=== PATIENT | male | born 1995 | race Caucasian/White ===

== ENCOUNTER 2017-03-26 11:13 | Observation (INO) | payer OTHER ==
[2017-03-26] MEDS ORDERED: ONDANSETRON 4 MG/2 ML VIAL ONE (12:03)
[2017-03-26] MEDS ORDERED: ONDANSETRON 4 MG/2 ML VIAL IVP ONE (12:08)
[2017-03-26] MEDS ORDERED: NS 1,000 ML IV ONE ×3 (12:29→14:21)
[2017-03-26 12:36] LABS: % IMMATURE GRANULYOCYTES 0.5 % (0.0-1.1); ABSOLUTE IMMATURE GRANULOCYTES 0.09 10^3/uL (0.00-0.10); ADD DIFF? NO; ADD MORPH? NO; ADD SCAN? NO; ATYPICAL LYMPHOCYTE FLAG 0 (0-99); FRAGMENT RBC FLAG 0 (0-99); HEMOGLOBIN 18.6 g/dL (13.7-17.5); LEFT SHIFT FLG 0 (0-99); LIPEMIA HEMOLYSIS FLAG 90 (0-99); MEAN CELL HEMOGLOBIN 30.5 pg (27.9-34.1); MEAN CELL HEMOGLOBIN CONCENTR. 33.8 g/dL (32.4-36.7); MEAN CELL VOLUME 90.2 fL (81.5-99.8); MEAN PLATELET VOLUME 11.1 fL (8.7-11.7); PLATELET CLUMPS FLAG 0 (0-99); PLATELET COUNT 337 10^3/uL (150-400); RED CELL DISTRIBUTION WIDTH 13.8 % (11.5-15.2)
[2017-03-26 12:41] LABS: ANION GAP 37 mEq/L (8-16); CHLORIDE 97 mEq/L (97-110); CREATININE 1.1 mg/dL (0.7-1.3); GLOMERULAR FILTRATION RATE > 60; POTASSIUM 4.4 mEq/L (3.5-5.2); SODIUM 142 mEq/L (134-144)
--- NOTE | 2017-03-26 12:48 | EDPHY ---
H & P Time Seen by Provider: 03/26/17 12:30 HPI/ROS: CHIEF COMPLAINT: Seizure HISTORY OF PRESENT ILLNESS: The patient is a 21-year-old male who presents emergency department after having an episode of seizure-like activity. The patient states that he has no history of seizure. He has been stressed about his grades and is not been sleeping. He states he has not slept for the last 24 hr. He was in class taking notes. The next thing he noted he was on the floor any data center architect were standing over his head. Per report, the patient had seizure -like activity. Patient states that he has been taking Adderall prescribed to him. He has also been taking nicotine supplements. He drinks coffee early occasionally. He has no headache. No neck pain. No focal weakness or numbness. Patient has used LSD in the past but none recently. No other drug use. REVIEW OF SYSTEMS: My complete review of systems is negative except as mentioned in the HPI. Past Medical/Surgical History: Includes depression, anxiety Past surgical history: Negative Social history: The patient used LSD a couple of weeks ago. He uses nicotine supplementation. Smoking Status: Current every day smoker Physical Exam: 163/85, 126, 18, 93% on room air, 36.6 GENERAL: Well-appearing, in no acute distress, alert. HEENT: Eyes normal to inspection, normal pharynx, patient has a small bite at the tip of his tongue no signs of dehydration. NECK: No thyromegaly, no lymphadenopathy, supple. RESPIRATORY: Clear to auscultation bilaterally, no rales, rhonchi or wheezing. CVS: Regular rate and rhythm, no rubs, murmurs, or gallops. ABDOMEN: Soft, nontender, nondistended, no organomegaly. BACK: Normal to inspection, no CVA tenderness. : No incontinence SKIN: Normal color, no rash, warm, dry. No pallor. EXTREMITIES: No pedal edema, no calf tenderness, no Homans sign or cords, no joint swelling. NEURO/PSYCH: Higher functions: Alert and Oriented x3. Normal speech and cognition. Normal mood and affect. Cranial nerves: Normal as tested. Cerebellar: Normal as tested. Good finger to nose, good [id number], normal gait. Peripheral exam: Normal motor exam. Normal sensation. Normal reflexes. Constitutional: Initial Vital Signs Temperature (C) 36.6 C 03/26/17 11:15 Heart Rate 126 H 03/26/17 11:15 Respiratory Rate 18 03/26/17 11:15 Blood Pressure 163/85 H 03/26/17 11:15 O2 Sat (%) 93 03/26/17 11:15 O2 Delivery Mode Room Air Allergies/Adverse Reactions: No Known Allergies Allergy (Unverified 03/26/17 11:33) Home Medications: Medication Instructions Recorded Adderall 10 MG (*) 03/26/17 Remeron 03/26/17 Medical Decision Making - Diagnostics Imaging Results: Imaging Impressions Head CT 03/26/17 12:28 Impression: There is no acute intracranial abnormality identified on this unenhanced CT evaluation. If there is further clinical concern regarding the patient's symptoms, MR imaging is suggested, if not otherwise contraindicated. Findings were discussed with JEREL ESCALONA MD at 13:07, on 03/26/2017. ED Course/Re-evaluation: In the emergency department discussed possible etiologies with the patient. I answered all his questions. IV was placed. Laboratory studies, head CT were ordered 1300: I reviewed the patient's rhythm strip. He was tachycardic while here. He had multiple PVCs. Because of this an EKG was ordered. Troponin was added. Patient's chemistry panel was noted to be abnormal with a CO2. Sodium and potassium were normal. Renal function normal. Patient's troponin was negative. His white count was elevated 18,000. EKG showed sinus tachycardia 115. Normal axis and normal intervals. No ST or T- wave abnormalities. I reviewed the patient's rhythm strip. It. [facility] [place] [facility] 13 50: The patient is still tachycardic. He does not appear withdrawing. He denies alcohol use. U tox was added. Patient was given a 3rd L of normal saline. Repeat chemistry panel was ordered. U tox pending I discussed the case with Cardiology, Dr. Mcclendon. We reviewed the rhythm strip with danielamel as well as EKG. Based on the patient's presentation and rhythm strip findings she recommended the patient be observed. I agree with this plan. I discussed the case with the hospitalist service. Dr. Marcelino will admit. Dr. Mcclendon evaluated the patient in the emergency department. She reported to me that the patient stated he used cocaine 2 days ago. This could be contributing to his symptoms. Differential Diagnosis: My differential includes but is not limited to seizure, epilepsy, subarachnoid hemorrhage, subdural hematoma, mass, malignancy, electrolyte abnormality, sugar abnormality, dehydration - Data Points Laboratory Results: Laboratory Results 03/26/17 11:25 03/26/17 11:25 03/26/17 03/26/17 03/26/17 13:40 12:50 11:25 WBC RBC Hgb Hct MCV MCH MCHC RDW Plt Count MPV Neut % (Auto) Lymph % (Auto) Bowman % (Auto) Eos % (Auto) Baso % (Auto) Nucleat RBC Rel Count Absolute Neuts (auto) Absolute Lymphs (auto) Absolute Monos (auto) Absolute Eos (auto) Absolute Basos (auto) Absolute Nucleated RBC Immature Gran % Immature Gran # Sodium 142 mEq/L mEq/L (134-144) Potassium 4.4 mEq/L mEq/L (3.5-5.2) Chloride 97 mEq/L mEq/L (97-110) Carbon Dioxide 8 mEq/l L* mEq/l (22-31) Anion Gap 37 mEq/L H mEq/L (8-16) BUN 8 mg/dL mg/dL (7-23) Creatinine 1.1 mg/dL mg/dL (0.7-1.3) Estimated GFR > 60 Glucose 143 mg/dL H mg/dL (70-100) Calcium 10.7 mg/dL H mg/dL (8.5-10.4) Phosphorus 7.0 mg/dL H mg/dL (2.5-4.5) Troponin I < 0.012 ng/mL ng/mL (0.000-0.034) Urine Opiates Screen Pending Urine Barbiturates Pending Ur Phencyclidine Scrn Pending Ur Amphetamine Screen Pending U Benzodiazepines Scrn Pending Urine Cocaine Screen Pending U Marijuana (THC) Screen Pending 03/26/17 11:25 WBC 18.63 10^3/uL H 10^3/uL (3.80-9.50) RBC 6.10 10^6/uL 10^6/uL (4.40-6.38) Hgb 18.6 g/dL H g/dL (13.7-17.5) Hct 55.0 % H % (40.0-51.0) MCV 90.2 fL fL (81.5-99.8) MCH 30.5 pg pg (27.9-34.1) MCHC 33.8 g/dL g/dL (32.4-36.7) RDW 13.8 % % (11.5-15.2) Plt Count 337 10^3/uL 10^3/uL (150-400) MPV 11.1 fL fL (8.7-11.7) Neut % (Auto) 68.1 % % (39.3-74.2) Lymph % (Auto) 24.2 % % (15.0-45.0) Bowman % (Auto) 6.4 % % (4.5-13.0) Eos % (Auto) 0.4 % L % (0.6-7.6) Baso % (Auto) 0.4 % % (0.3-1.7) Nucleat RBC Rel Count 0.0 % % (0.0-0.2) Absolute Neuts (auto) 12.68 10^3/uL H 10^3/uL (1.70-6.50) Absolute Lymphs (auto) 4.51 10^3/uL H 10^3/uL (1.00-3.00) Absolute Monos (auto) 1.20 10^3/uL H 10^3/uL (0.30-0.80) Absolute Eos (auto) 0.07 10^3/uL 10^3/uL (0.03-0.40) Absolute Basos (auto) 0.08 10^3/uL 10^3/uL (0.02-0.10) Absolute Nucleated RBC 0.00 10^3/uL 10^3/uL (0-0.01) Immature Gran % 0.5 % % (0.0-1.1) Immature Gran # 0.09 10^3/uL 10^3/uL (0.00-0.10) Sodium Potassium Chloride Carbon Dioxide Anion Gap BUN Creatinine Estimated GFR Glucose Calcium Phosphorus Troponin I Urine Opiates Screen Urine Barbiturates Ur Phencyclidine Scrn Ur Amphetamine Screen U Benzodiazepines Scrn Urine Cocaine Screen U Marijuana (THC) Screen Medications Given: Discontinued Medications Sodium Chloride (Ns) 1,000 mls @ 3,000 mls/hr IV ONCE ONE Stop: 03/26/17 12:48 Last Admin: 03/26/17 12:00 Dose: 1,000 mls Sodium Chloride (Ns) 1,000 mls @ 3,000 mls/hr IV ONCE ONE Stop: 03/26/17 13:32 Last Admin: 03/26/17 13:14 Dose: 1,000 mls Sodium Chloride (Ns) 1,000 mls @ 3,000 mls/hr IV ONCE ONE Stop: 03/26/17 14:40 Last Admin: 03/26/17 14:00 Dose: 1,000 mls Lorazepam (Ativan Injection) 0.5 mg IVP EDNOW ONE Stop: 03/26/17 14:21 Last Admin: 03/26/17 14:37 Dose: 0.5 mg Ondansetron HCl (Zofran) 4 mg IVP EDNOW ONE Stop: 03/26/17 12:09 Last Admin: 03/26/17 12:09 Dose: 4 mg Departure - Departure Disposition: [facility] Clinical Impression: Seizure Cardiac dysrhythmia Qualifiers: Arrhythmia type: unspecified cardiac arrhythmia Qualified Code(s): I49.9 - Cardiac arrhythmia, unspecified Condition: Good
[2017-03-26 12:54] LABS: CALCIUM 10.7 mg/dL (8.5-10.4); GLUCOSE 143 mg/dL (70-100)
[2017-03-26 13:02] LABS: CARBON DIOXIDE 8 mEq/l (22-31)
--- NOTE | 2017-03-26 13:08 | CPEKG ---
Heart Rate: 115 RR Interval: 522 P-R Interval: 148 QRSD Interval: 92 QT Interval: 312 QTC Interval: 432 P Reed: 84 QRS Reed: 88 T Wave Reed: 68 EKG Severity - OTHERWISE NORMAL ECG - EKG Impression: SINUS TACHYCARDIA Electronically Signed By: Corrie Arboleda 26-Mar-2017 15:14:11
[2017-03-26] MEDS ORDERED: LORazepam 2 MG/ML INJ IVP ONE (14:20)
[2017-03-26 14:59] LABS: ANION GAP 11 mEq/L (8-16); CALCIUM 8.1 mg/dL (8.5-10.4); CARBON DIOXIDE 20 mEq/l (22-31); CHLORIDE 109 mEq/L (97-110); CREATININE 0.8 mg/dL (0.7-1.3); GLOMERULAR FILTRATION RATE > 60; GLUCOSE 79 mg/dL (70-100); POTASSIUM 4.3 mEq/L (3.5-5.2); SODIUM 140 mEq/L (134-144)
--- NOTE | 2017-03-26 15:04 | PDGENHP ---
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 He used cocaine 2 nights ago and has been taking extra adderall because he isn't sleeping well, trying to stay focused during class. He also frequently vapes with a nicotine supplement. He was in class today taking notes and then everything went black and the next thing he remembers is seeing the EMS providers. Witnesses reported tonic clonic seizure activity. He felt lightheaded and dizzy when he woke up and felt overwhelmed. No CP, some SOB. No fevers/chills. In the ED, his HR is in the 120's and he is hypertensive. He developed bigeminy on his rhythm strip. Cardiology was consulted, saw the pt in the ED, and he is admitted for further evaluation. History Information - Allergies/Home Medication List Allergies/Adverse Reactions: No Known Allergies Allergy (Unverified 03/26/17 11:33) Home Medications: Dextroamphetamine/Amphetamine [Adderall 5 mg Tablet] 5 mg PO DAILY 03/26/17 [ Last Taken 03/26/17 09:00] Gabapentin [Neurontin 300 MG (*)] 600 mg PO HS 03/26/17 [Last Taken 03/26/17] Herbals/Supplements -Info Only 1 ea PO DAILY 03/26/17 [Last Taken 03/26/17] Mirtazapine [Remeron] 30 mg PO HS 03/26/17 [Last Taken 03/25/17] I have personally reviewed and updated: family history, medical history, social history, surgical history - Past Medical History Additional medical history: ADHD, Anxiety - Surgical History Reports: no pertinent surgical hx - Family History Positive for: non-pertinent - Social History Smoking Status: Current every day smoker Alcohol Use: Occasionally Drug Use: Cocaine, Other (adderall misuse) Additional social history: College student, studying psychology and political science Review of Systems Review of Systems: ROS: 10pt was reviewed & negative except for what was stated in HPI & below Physical Exam Physical Exam: Temp Pulse Resp BP Pulse Ox 36.6 C 114 H 24 H 152/86 H 96 03/26/17 11:15 03/26/17 14:03 03/26/17 14:03 03/26/17 14:03 03/26/17 14:03 Constitutional: no apparent distress Eyes: other (pupils dilated, errl) Ears, Nose, Mouth, Throat: moist mucous membranes Cardiovascular: no murmur, rub, or gallop, tachycardia Respiratory: no respiratory distress, clear to auscultation Gastrointestinal: normoactive bowel sounds, soft, non-tender abdomen Skin: warm Musculoskeletal: full muscle strength Neurologic: AAOx3 Psychiatric: interacting appropriately Lab Data & Imaging Review 03/26/17 11:25 03/26/17 14:35 WBC 18.63 10^3/uL (3.80-9.50) H 03/26/17 11:25 RBC 6.10 10^6/uL (4.40-6.38) 03/26/17 11:25 Hgb 18.6 g/dL (13.7-17.5) H 03/26/17 11:25 Hct 55.0 % (40.0-51.0) H 03/26/17 11:25 MCV 90.2 fL (81.5-99.8) 03/26/17 11:25 MCH 30.5 pg (27.9-34.1) 03/26/17 11:25 MCHC 33.8 g/dL (32.4-36.7) 03/26/17 11:25 RDW 13.8 % (11.5-15.2) 03/26/17 11:25 Plt Count 337 10^3/uL (150-400) 03/26/17 11:25 MPV 11.1 fL (8.7-11.7) 03/26/17 11:25 Neut % (Auto) 68.1 % (39.3-74.2) 03/26/17 11:25 Lymph % (Auto) 24.2 % (15.0-45.0) 03/26/17 11:25 Sharkey % (Auto) 6.4 % (4.5-13.0) 03/26/17 11:25 Eos % (Auto) 0.4 % (0.6-7.6) L 03/26/17 11:25 Baso % (Auto) 0.4 % (0.3-1.7) 03/26/17 11:25 Nucleat RBC Rel Count 0.0 % (0.0-0.2) 03/26/17 11:25 Absolute Neuts (auto) 12.68 10^3/uL (1.70-6.50) H 03/26/17 11:25 Absolute Lymphs (auto) 4.51 10^3/uL (1.00-3.00) H 03/26/17 11:25 Absolute Monos (auto) 1.20 10^3/uL (0.30-0.80) H 03/26/17 11:25 Absolute Eos (auto) 0.07 10^3/uL (0.03-0.40) 03/26/17 11:25 Absolute Basos (auto) 0.08 10^3/uL (0.02-0.10) 03/26/17 11:25 Absolute Nucleated RBC 0.00 10^3/uL (0-0.01) 03/26/17 11:25 Immature Gran % 0.5 % (0.0-1.1) 03/26/17 11:25 Immature Gran # 0.09 10^3/uL (0.00-0.10) 03/26/17 11:25 Sodium 142 mEq/L (134-144) 03/26/17 11:25 Potassium 4.4 mEq/L (3.5-5.2) 03/26/17 11:25 Chloride 97 mEq/L (97-110) 03/26/17 11:25 Carbon Dioxide 8 mEq/l (22-31) L* 03/26/17 11:25 Anion Gap 37 mEq/L (8-16) H 03/26/17 11:25 BUN 8 mg/dL (7-23) 03/26/17 11:25 Creatinine 1.1 mg/dL (0.7-1.3) 03/26/17 11:25 Estimated GFR > 60 03/26/17 11:25 Glucose 143 mg/dL (70-100) H 03/26/17 11:25 Calcium 10.7 mg/dL (8.5-10.4) H 03/26/17 11:25 Phosphorus 7.0 mg/dL (2.5-4.5) H 03/26/17 11:25 Troponin I < 0.012 ng/mL (0.000-0.034) 03/26/17 12:50 Urine Opiates Screen NEGATIVE (NEGATIVE) 03/26/17 13:40 Urine Barbiturates NEGATIVE (NEGATIVE) 03/26/17 13:40 Ur Phencyclidine Scrn NEGATIVE (NEGATIVE) 03/26/17 13:40 Ur Amphetamine Screen NON-NEGATIVE (NEGATIVE) H 03/26/17 13:40 U Benzodiazepines Scrn NEGATIVE (NEGATIVE) 03/26/17 13:40 Urine Cocaine Screen NON-NEGATIVE (NEGATIVE) H 03/26/17 13:40 U Marijuana (THC) Screen NEGATIVE (NEGATIVE) 03/26/17 13:40 Visualized and Interpreted EKG results: Yes EKG additional interpertation: sinus tachycardia Assessment & Plan Assessment: Seizure - new onset, suspect provoked by poly-susbtance abuse with recent cocaine, overuse of Adderall and nicotine supplement by vaporization pen. CT head negative. Discussed case with Dr. Gee who does not recommend treating with anti-epileptic at this time, he will consult in am. -admit to telemetry -seizure precautions, neurochecks -MRI in am -encouraged treatment for substance use disorder -Neurology consult Ventricular bigeminy - again, suspect substance induced. Discussed with Dr. Mcclendon, cardiology, who consulted in ED. Trop neg. -monitor on tele -avoid beta blockers in setting of cocaine use -trend trop -echo pending Polysubstance abuse - cocaine and amphetamine on UDS. Discussed with pt cardiac and neurologic risks. Encouraged treatment. -outpt tx -encouraged cessation Full code DVT PPLX - low risk Dispo - PCU, obs
[2017-03-26] MEDS ORDERED: LORazepam 2 MG/ML INJ IVP PRN (15:13)
[2017-03-26] MEDS ORDERED: ONDANSETRON DISINTEGRATING 4 MG TAB PO PRN (15:14)
[2017-03-26] MEDS ORDERED: ONDANSETRON 4 MG/2 ML VIAL IVP PRN (15:14)
[2017-03-26] MEDS ORDERED: ACETAMINOPHEN 325 MG TAB PO PRN (15:14)
[2017-03-26] MEDS ORDERED: NS 1,000 ML IV SCH (15:15)
--- NOTE | 2017-03-26 16:27 | ECHO ---
[email or web address] [address] [address] Main: [phone] Fax: Transthoracic Echocardiogram Name: HERMAN ROSE MR#: [id number] Study Date: 03/26/2017 Study Time: 03:40 PM Date of : 1995 Age: 21 year(s) Height: 180.3 cm (71 in.) Weight: 63.5 kg (140 lb.) BSA: 1.81 m2 Gender: Male Examination: Echo Indication: Syncope/PVCs Image Quality: Contrast: Requested by: Jazmine Mcclendon BP: 131 mmHg/78 mmHg Heart Rate: Rhythm: Indication: Syncope/PVCs Procedure Staff Computer Operations Manager: Edna Frederick Physician: Jermaine Gomez Requesting Provider: Measurements: Chambers Valvular Assessment AV/MV Valvular Assessment TV/PV Normal Normal Normal Name Value Range Name Value Range Name Value Range Ao Jodi (MM): 3.1 cm (2.2 cm-3.7 AV Vmax: 0.07 m/s (1 m/s-1.7 PV Vmax: 1.28 m/s (0.6 m/s-0.9 cm) m/s) m/s) IVSd (2D): 0.6 cm (0.6 cm-1.1 AV maxP mmHg ( - ) PV PGmax: 7 mmHg ( - ) cm) AV meanP mmHg ( - ) LVDd (2D): 4.3 cm (4.2 cm-5.9 MV E Vmax: 0.88 m/s ( - ) cm) MV A Vmax: 0.78 m/s ( - ) LVDs (2D): 2.4 cm (2.1 cm-4 MV E/A: 1.13 ( - ) cm) LVPWd (2D): 0.8 cm (0.6 cm-1 cm) LVEF (MOD4): 75 % (>=55 %) Continued Measurements: Chambers Valvular Assessment AV/MV Name Value Name Value LADs Lon.4 cm MV E' Septal: 0.14 m/s LA Area: 9.6 cm2 MV E/E' Septal: 6.10 MV E/E' Lateral: 4.50 Findings: Left Ventricle: Normal size left ventricle. Global hypercontractility of the left ventricle. EF is 75 %. No regional wall motion abnormality. Right Ventricle: Patient: HERMAN ROSE Study Date: 03/26/2017 Page 1 of 2 03:40 PM Normal size right ventricle. Left Atrium: The left atrium is normal in size. Right Atrium: The right atrium is normal in size. Mitral Valve: The mitral valve is normal in appearance and function. Trivial mitral valve regurgitation. Aortic Valve: The aortic valve is normal in appearance and function. Tricuspid Valve: The tricuspid valve is normal in appearance and function. Trivial tricuspid valve regurgitation. Pulmonic Valve: The pulmonic valve is normal in appearance and function. Aorta: The aorta is normal. Pericardium: No pericardial effusion. (No Signature Object) Patient: HERMAN ROSE Study Date: 03/26/2017 Page 2 of 2 03:40 PM [id number]
--- NOTE | 2017-03-26 16:47 | ASMTCMCOM ---
CM Note CM Note Notes: 03/26/2017 Case Management Note Met w/pt. Pt parents are Christine and Shoaib Rae. Dad's cell [phone]. Pt did not alea permission for case management to reach out to parents. Pt plans to call them later anne. Pt family lives in [facility]. Pt sees a counselor Naren at the [facility] program at [facility] every 2 weeks. He feels this is not enough support and would like to see if his parent's insurance offers any counseling here in [place]. Discussed case management will need to contact parents for that information. Pt declined contact by case management today to parents and asked to discuss again tomorrow. Pt requested counseling here at [facility]; offered Social work consult, spiritual consult or [facility]. Case Management to arrange social work consult tomorrow. Pt psychiatrist is Neha Cabral in [facility]. [phone]. Pt did alea permission for medical staff to contact Neha Cabral and offered to sign a release of information. Pt reports his daily Adderall dose is 5 mg BID but usually only uses it once a day. He is prescribed a medication to sleep but couldn't recall the name. Pt lives in the [facility] alone and has tentative plans for a political science degree or psychology. 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 He admits to using marijuana his freshman year but found it made him anxious. He reports a good break at home over but felt his grades need improvement upon returning to [place]. He stayed up for 3 nights with friends in the library using adderall, cocaine, coffee and vaping to stay awake. Reports this is his third time using cocaine and hopes to stop. Case Management d/c poc: To be determined. Pt is requesting resources for more support. Will need to explore options further tomorrow. Date Signed: 03/26/2017 04:46 PM Electronically Signed By:Erin Dent RN
--- NOTE | 2017-03-26 20:01 | GCON ---
[f rep st] CONSULTATION CARDIOLOGY CONSULT. DATE OF CONSULTATION: 03/26/2017 CHIEF COMPLAINT: Seizure and PVCs. HISTORY OF PRESENT ILLNESS: We were asked by Dr. Arboleda to visit with the patient. 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 He has been very stressed at school, and tells us that he stayed up for 2 nights in a row. He has been taking 10 mg of Adderall daily which is twice the amount that he normally takes. He also did cocaine 2 days ago, has been using nicotine replacement as he is try ing to quit cigarettes, and did drink a significant amount of alcohol approximately 5 days ago. He a dmits that he has been eating poorly and not staying well hydrated. He was in class today and felt that his heart was racing. The next thing he knew he was on the floor surrounded by EMS and was brought to the hospital. He does not recall preceding chest pain or dyspn ea. He has never had a syncopal episode or history of seizure disorder. Apparently, bystanders repo rted that he did have seizure-like activity and bit his tongue. In the emergency department, he received IV fluids. His EKG shows sinus tachycardia with no pre-exci tation, Brugada pattern, or long QT interval. He did have periods of ventricular bigeminy. Upon my evaluation, he is in sinus tachycardia. He reports that he is feeling better after IV fluids. REVIEW OF SYSTEMS: As above. He has a long history of anxiety and depression, and he is quite stres sed with school right now. Otherwise, a full 10-point review of systems is negative. MEDICATIONS: Outpatient: Remeron, Adderall 5-10 mg daily, and a sleep aid which he cannot recall th e name of. SOCIAL HISTORY: The patient is a college student. He smokes cigarettes, is using nicotine replaceme nt to try to quit, has recently used cocaine, has used LSD in the past couple of weeks, and sometimes drinks alcohol. He denies any recent marijuana use. FAMILY HISTORY: Negative for premature coronary disease or unexplained early . PHYSICAL EXAMINATION: VITAL SIGNS: Blood pressure is initially 163/85. Heart rate 114. Oxygen sat uration 96% on room air. He is afebrile. GENERAL: This is a well-developed, well-nourished, and ve ry anxious, somewhat agitated young male. He is cooperative. HEENT: Pupils are dilated, but react equally to light. Normocephalic, atraumatic. Sclerae clear and free of jaundice. Mucous membranes moist. CARDIOVASCULAR: JVP is less than 10. Carotids equal and 2+ without bruit. CARDIOVASCULAR: Regular, tachycardic rhythm without murmur, rub, or gallop. LUNGS: Clear to auscultation without w heeze, rhonchi, or rales. ABDOMEN: Soft, nontender, nondistended without bruits, masses, hepatosple nomegaly. EXTREMITIES: Warm and perfused without cyanosis, clubbing, or edema. NEURO: He is alert and oriented x3. He is anxious and somewhat tremulous, but otherwise appropriate. LABORATORY DATA: White count 18.6, hematocrit 55, and platelets are 337. Sodium 142, potassium 4.4, chloride 97, bicarb 8, anion gap is 37, BUN 8, creatinine 1.1, glucose is 143, calcium 10.7, phospho carolyn 7. Troponin is negative. U-tox is pending. EKG reviewed by me: Sinus tachycardia with no ischemic changes, no pre-excitation, no evidence of Br ugada pattern. Normal QT interval. Head CT: No acute intracranial abnormality. ASSESSMENT AND PLAN: 21-year-old male with anxiety and polysubstance abuse, presents with seizure-li ke activity, and has had some ventricular bigeminy on telemetry. He is being admitted for further ob servation. It is likely that the use of multiple stimulants triggered a seizure. However, there is concern for arrhythmic etiology and convulsive syncope given the premature ventricular contractions s een on telemetry. 1. Seizure: He is being admitted by Internal Medicine. He will be monitored. Consider neurology c onsult. Head CT is normal. 2. Premature ventricular contractions: Concern for arrhythmic etiology of his syncopal/seizure epis ode. We will monitor on telemetry. Echocardiogram has been ordered. Would avoid beta blockers as h e recently used cocaine 48 hours ago. Check toxicology screen. 3. Elevated white count: This is likely due to his seizure. This can be followed. He is currently afebrile and does not appear infected. 4. Acidosis: Likely related to lactic acidosis from his seizure. Follow BMP. Thank you for allowing us to participate in patient's care. We will follow with you. /[id number]/MODL
[2017-03-26] MEDS ORDERED: GABAPENTIN 300 MG CAP PO SCH (21:00)
[2017-03-26] MEDS: NICOTINE 7 MG/24 HR PATCH TD SCH (22:32)
[2017-03-27 07:02] LABS: % IMMATURE GRANULYOCYTES 0.3 % (0.0-1.1); ABSOLUTE IMMATURE GRANULOCYTES 0.03 10^3/uL (0.00-0.10); ADD DIFF? NO; ADD MORPH? NO; ADD SCAN? NO; ATYPICAL LYMPHOCYTE FLAG 0 (0-99); FRAGMENT RBC FLAG 0 (0-99); HEMATOCRIT 41.1 % (40.0-51.0); HEMOGLOBIN 14.5 g/dL (13.7-17.5); LEFT SHIFT FLG 0 (0-99); LIPEMIA HEMOLYSIS FLAG 90 (0-99); MEAN CELL HEMOGLOBIN 30.6 pg (27.9-34.1); MEAN CELL HEMOGLOBIN CONCENTR. 35.3 g/dL (32.4-36.7); MEAN CELL VOLUME 86.7 fL (81.5-99.8); MEAN PLATELET VOLUME 10.8 fL (8.7-11.7); PLATELET CLUMPS FLAG 0 (0-99); PLATELET COUNT 175 10^3/uL (150-400); RED BLOOD CELL COUNT 4.74 10^6/uL (4.40-6.38); RED CELL DISTRIBUTION WIDTH 13.8 % (11.5-15.2)
[2017-03-27 07:40] LABS: ANION GAP 13 mEq/L (8-16); CALCIUM 8.9 mg/dL (8.5-10.4); CARBON DIOXIDE 18 mEq/l (22-31); CHLORIDE 108 mEq/L (97-110); CREATININE 0.8 mg/dL (0.7-1.3); GLOMERULAR FILTRATION RATE > 60; GLUCOSE 76 mg/dL (70-100); POTASSIUM 4.7 mEq/L (3.5-5.2); SODIUM 139 mEq/L (134-144); SPECIMEN HEMOLYSIS 116
[2017-03-27] MEDS: NICOTINE 7 MG/24 HR PATCH TD SCH (10:18)
--- NOTE | 2017-03-27 10:22 | HOSPPROG ---
Hospitalist Progress Note Assessment/Plan: 21 yo M w seizure in setting of stimulant drug use, cocaine and sleep deprivation home today see dc summary Subjective: no further seizures. seen by neuro Objective: Vital Signs Temp Pulse Resp BP Pulse Ox 36.7 C 82 15 123/70 H 92 03/27/17 04:00 03/27/17 04:00 03/27/17 04:00 03/27/17 04:00 03/27/17 04:00 Laboratory Results 03/27/17 06:30 03/27/17 06:30 03/26/17 03/27/17 03/28/17 05:59 05:59 05:59 Intake Total 7750 Balance 7750 - Physical Exam Constitutional: no apparent distress, appears nourished Eyes: PERRL, anicteric sclera Ears, Nose, Mouth, Throat: moist mucous membranes, hearing normal Cardiovascular: regular rate and rhythym, no murmur, rub, or gallop Respiratory: no respiratory distress, no rales or rhonchi Gastrointestinal: normoactive bowel sounds, soft, non-tender abdomen Genitourinary: no bladder fullness, No sarmiento in urethra Skin: warm, normal color Musculoskeletal: full muscle strength, no muscle tenderness Neurologic: AAOx3, sensation intact bilaterally Psychiatric: interacting appropriately, not anxious Lymph, Heme, Immunologic: no cervical LAD ICD10 Worksheet Patient Problems: Problems Problem Status Onset Cardiac dysrhythmia Acute Seizure Acute
--- NOTE | 2017-03-27 10:59 | ASMTCMCOM ---
CM Note CM Note Notes: CM met w/ pt for dispo planning. CM provided some short term cognitive behavioral therapy. CM provided pt w/ several options for therapy found on psychology today. CM provided pt w/ a note for school. CM available for changes. Plan: Independent Date Signed: 03/27/2017 10:59 AM Electronically Signed By:DAMON Chen
[2017-03-27 11:29] VITALS: BP 129/71; PULSE 90; RESP 16; TEMP 97.9; O2SAT 64
--- NOTE | 2017-03-27 12:10 | GDS ---
[f rep st] DISCHARGE SUMMARY DISCHARGE DIAGNOSES: 1. Seizure. 2. Bigeminy. CONSULTS: Neurology. Please see admission history and physical by Dr. Maggy Rainey. HOSPITAL COURSE: The patient presented with a seizure that happened in class after 2 sleepless night s, during which time he doubled his home Adderall dose and used cocaine. He had a negative noncontra st CT. Declined MRI. He was seen by Neurology, felt no antiepileptic drugs were warranted. The pat ient was in bigeminy upon presentation. He had an EKG showing sinus tach. He had a normal echocardi ogram. He was discharged home. There were no events on telemetry. He was advised that cocaine is a dangerous drug. /[id number]/MODL
--- NOTE | 2017-03-27 14:05 | GCON ---
[f rep st] CONSULTATION NEUROLOGIC CONSULTATION REFERRING PHYSICIAN: Maggy Rainey MD The patient is a 21-year-old gentleman, whom I am asked to see in neurologic consultation for a gener alized seizure. The patient has no prior history of seizure. History is obtained from reviewing the medical records, as well as direct discussion with the patient and his nurse, and I also spoke to anuja montes mother after my evaluation of the patient. He came to the emergency room yesterday at around 12:30 , when he had had an event in class. He said he had not been sleeping for about 24 hours, and over t he previous several days had been taking extra Adderall to stay awake, cramming for tests. He also a cknowledges that a few days earlier he had taken cocaine, which is extremely rare for him to do. The description we have from EMS was witnesses recognized him to lose consciousness and awareness, an d had seizure-like activity consistent with a generalized convulsion. He was brought to the emergenc y department and found to be alert and oriented, and did not remember the details of the event, but d oes remember the rescue squad being there and over him, and simply feeling confused as to what was goldman ppening. Metabolic acidosis was seen on his initial lab, which has cleared. He underwent a head CT that was unremarkable. He had tachycardia and some bigeminy, and Cardiology was involved to assess h is function and did not find any obvious cardiac disorder. He has subsequently been admitted to the floor. I spoke to Dr. Rainey and initially planned on MRI, but have subsequently had more detailed discussion with the patient, and will defer on that for now. In any case, the patient had normal and development, and has dealt with some attention defici t problems and is on stimulant medicine. He also has a history of some anxiety and depression for wh ich he has had a psychiatrist. He has someone he sees in [place]. He also apparently has had some cou nseling in the area. During hospitalization, he has also undergone an echocardiogram. That study shows no abnormalities. PAST MEDICAL HISTORY: Unremarkable for any chronic neurologic conditions. The other medical problem s are as outlined above. MEDICATIONS: At admission were gabapentin 300 mg taking usually 600 at night, herbal supplements at times, Remeron 30 mg at night, and Adderall 5 mg. He says he usually takes 1 or 1-1/2 per day, but h ad been taking more lately. He had also reported vaping some nicotine supplement. FAMILY HISTORY: Noncontributory. SOCIAL HISTORY: He does smoke some cigarettes daily. Only occasional alcohol use. PHYSICAL EXAM: VITAL SIGNS: Blood pressure is 123/70, pulse of 82, respirations 15, temperature 36. 7. GENERAL: He is well developed, in no acute distress. EYES: Clear. NECK: Supple. No bruits o r masses. CARDIAC: Regular rate and rhythm. No murmur. NEUROLOGIC: He is alert and attentive and a little bit anxious, with mildly pressured speech. Pupils are dilated at about 5 mm, but reactive. Extraocular movements are intact. Normal facial sensation and movement. Hearing is preserved. Mo tor exam normal muscle bulk and tone with 5/5 strength. Reflexes 1 to 2+ and symmetric. Normal gait . No sensory loss. I have reviewed all of his diagnostic studies and they are as outlined above. IMPRESSION: Today's total unit time of 55 minutes, including review of information with the patient and a phone conversation with his mother. He had a seizure probably precipitated by sleep deprivatio n and excessive stimulant use. We had a good review of all of this and the fact that it is high risk to repeat his behavior, and he agrees to not do this in the future. He is extremely unlikely to hav e further seizures if he does not do this again. His head CT was negative. I spoke to his mother ab out the MRI, and feel that it is perfectly reasonable to hold off on MRI for now. In fact, I would a gree with that if this were my family member. We talked about risk factors moving forward, and watch ing for any episodes of unexplained altered awareness or anything that might suggest partial seizure phenomena. I informed him about hydration and better approaches to studying. He will have the optio n of pursuing any other therapies he might like to avoid any stress he can, and if he needs any help resources will be provided for any drug counseling. PLAN: He will follow up with me as needed. I gave him my card, and he has asked that I not discuss anything outside of the basic information we have provided to his mother. Specifically, he has not g iven me permission to give results of drug screen, so when she asked, I told her she would have to discuss this with him. /[id number]/MODL
--- NOTE | 2017-03-27 15:32 | ASDISCHSUM ---
Discharge Information Plan Status:Home with No Needs Medically Cleared to Leave:03/26/2017 Discharge Date:03/27/2017 11:50 AM CM D/C Disposition: ADT D/C Disposition:Home, Routine, Self-Care Projected Discharge Date:03/27/2017 12:00 AM Transportation at D/C: Discharge Delay Reason: Follow-Up Date:03/27/2017 12:00 AM Discharge Slot: Final Diagnosis: Placement Information Patient Contact Information Contact Name:NANCY Relationship: Address: Home Phone: Work Phone: City: Alternate Phone: State/[place] Code: Email: Financial Information Financial Class:HMO and PPO Plans Primary Plan Desc:[employer] Primary Plan Number:[id number] Secondary Plan Desc: Secondary Plan Number: Assessment Information [facility] CM Progress Note CM Note CM Note Notes: 03/26/2017 Case Management Note Met w/pt. Pt parents are Brad Rae. Dad's cell [phone]. Pt did not alea permission for case management to reach out to parents. Pt plans to call them later [facility]. Pt family lives in [place]. Pt sees a counselor Naren at the [facility] program at [facility] every 2 weeks. He feels this is not enough support and would like to see if his parent's insurance offers any counseling here in [place]. Discussed case management will need to contact parents for that information. Pt declined contact by case management today to parents and asked to discuss again tomorrow. Pt requested counseling here at [facility]; offered Social work consult, spiritual consult or [facility]. Case Management to arrange social work consult tomorrow. Pt psychiatrist is Neha Cabral in [facility]. [phone]. Pt did alea permission for medical staff to contact Neha Cabral and offered to sign a release of information. Pt reports his daily Adderall dose is 5 mg BID but usually only uses it once a day. He is prescribed a medication to sleep but couldn't recall the name. Pt lives in the [place] alone and has tentative plans for a political science degree or psychology. 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 He admits to using marijuana his freshman year but found it made him anxious. He reports a good break at home over but felt his grades need improvement upon returning to [place]. He stayed up for 3 nights with friends in the library using adderall, cocaine, coffee and vaping to stay awake. Reports this is his third time using cocaine and hopes to stop. Case Management d/c poc: To be determined. Pt is requesting resources for more support. Will need to explore options further tomorrow. Date Signed: 03/26/2017 04:46 PM Electronically Signed By:Erin Dent RN [facility] Progress Note CM Note CM Note Notes: CM met w/ pt for dispo planning. CM provided some short term cognitive behavioral therapy. CM provided pt w/ several options for therapy found on psychology today. CM provided pt w/ a note for school. CM available for changes. Plan: Independent Date Signed: 03/27/2017 10:59 AM Electronically Signed By:DAMON Chen Intervention Information
== END 2017-03-27 11:50 | disposition home or self-care (01) ==
LOC: F2W 15:22
PROVIDERS: ADMIT Internal Medicine; ATTEND Internal Medicine
DX: R56.9 Unspecified convulsions (principal); I49.3 Ventricular premature depolarization; F19.982 Other psychoactive substance use, unspecified with psychoactive substance-induced sleep disorder; D72.829 Elevated white blood cell count, unspecified; F41.8 Other specified anxiety disorders; F17.210 Nicotine dependence, cigarettes, uncomplicated; F15.90 Other stimulant use, unspecified, uncomplicated; Z72.820 Sleep deprivation
CPT/HCPCS: 70450; 93005; 93306; G0378; 80305; 96374; J2060; J2405

== ENCOUNTER 2017-04-07 12:13 | Emergency (ER) | payer OTHER ==
[2017-04-07] MEDS ORDERED: NS 1,000 ML IV ONE (12:25)
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
[2017-04-07 12:43] VITALS: TEMP 98.2; O2SAT 95
[2017-04-07] MEDS ORDERED: LORazepam 2 MG/ML INJ IVP ONE (12:54)
[2017-04-07] MEDS ORDERED: LORazepam 2 MG/ML INJ ONE (12:55)
[2017-04-07 13:05] VITALS: BP 142/91; PULSE 99; RESP 18
== END 2017-04-07 13:25 | disposition home or self-care (01) ==
LOC: EDUNIT#
DX: F19.10 Other psychoactive substance abuse, uncomplicated (principal); F17.200 Nicotine dependence, unspecified, uncomplicated; R56.9 Unspecified convulsions
CPT/HCPCS: 96374; J2060